=== PATIENT | male | born 1990 | race Caucasian/White ===

== ENCOUNTER 2017-01-15 01:36 | Emergency (ER) | payer OTHER ==
[~2017-01-15] VITALS: Ht 180.3 cm; Wt 68.0 kg
--- NOTE | ~2017-01-15 | EKG ---
[place] [address] [facility] [place] [address] ELECTROCARDIOGRAM REPORT Name: GRETA FREITAS Room #: [facility]P [facility] ROSAGueritaGuerita#: [id number] Admission: 01/15/17 Attend Phys: Discharge: 01/15/17 Date of : 86 Report #: [id number] THIS REPORT FOR: //name// [facility] ED Test Date: 2017-01-15 Test Time: 01:58:50 Pat Name: GRETA FREITAS Department: Room: Gender: Hand Painter: CINDY : 1990 Requested By: Mk Weathers Order Number: [id number] MD: Eric Jamison Measurements Intervals Fowler Rate: 69 P: 70 ID: [id number] QRS: 75 QRSD: 86 T: 68 QT: 402 QTc: 431 Interpretive Statements Sinus rhythm Prolonged ID interval No previous ECG available for comparison Electronically Signed On 01-15-2017 17:07:05 [employer] by Eric Jamison [email or web address] <ELECTRONICALLY SIGNED> By: Eric Jamison MD, [facility] 01/15/17 1707 0158 [id number] Eric Jamison MD, FACC /EPI
[2017-01-15 02:30] VITALS: BP 109/68
== END 2017-01-15 02:30 | disposition home or self-care (01) ==
LOC: ER 01:36
DX: S90.32XA Contusion of left foot, initial encounter (principal); R42 Dizziness and giddiness; F17.210 Nicotine dependence, cigarettes, uncomplicated; Z88.4 Allergy status to anesthetic agent; X58.XXXA Exposure to other specified factors, initial encounter; Y93.89 Activity, other specified; Y92.89 Other specified places as the place of occurrence of the external cause; Y99.8 Other external cause status